=== PATIENT | female | born 1995 | race Caucasian/White ===

== ENCOUNTER 2018-03-12 15:05 | Emergency (ER) | payer MEDICAID ==
--- NOTE | 2018-03-12 15:09 | OBHP ---
Datetime: 03/12/2018 15:06 IP Adm Impression: Term, intrauterine Admit Comment, IP Provider: @ 41 wks GA reports decreamsed movments since this megan lucero otiliomariana nay ctx, lof, vb. [place], was schiledue for IOL yesterday but didn' t go beucase she was scared. 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 PMH: Denies PSH: Denies FHX: non contribuotyr MEDS: none NKDA SHX ;negative etoh/tobacc/durugs A/P @ 41 wks GA with decreased movmeents -nst -bpp dilshad to cand efm Pelvic Type - PN: Adequate Extremities - PN: Normal Abdomen - PN: Normal Back - PN: Normal Breast - PN: Not Done Lungs - PN: Normal Heart - PN: Normal Thyroid - PN: Not Done Neurologic - PN: Normal HEENT - PN: Normal General - PN: Normal Membranes, Provider: Intact Contraction Comments Provider: irregular EGA AdmitDate IP: 41.1 Vital Signs Provider: Reviewed IP Chief Complaint: Decreased movement NICHD Decel Fetus A IP Provider: None Dilatation, Provider: 0 Effacement, Provider: 0 Station, Provider: -3 Genitourinary Exam: Normal DTRs - PN: Normal
[2018-03-12] MEDS ORDERED: Lactated Ringer's 1,000 ML IV ONE (17:06)
--- NOTE | 2018-03-12 17:11 | OBADHP ---
Datetime: 03/12/2018 15:06 Admit Comment, IP Provider: @ 41 wks GA reports decreamsed movments since this megan lucero nay ctx, lof, vb. Pt adrienne receives pnc in [place], was schiledue for IOL yesterday but didn' t go beucase she was scared. 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 PMH: Denies PSH: Denies FHX: non contribuotyr MEDS: none NKDA SHX ;negative etoh/tobacc/durugs A/P @ 41 wks GA with decreased movmeents -nst -bpp dilshad to cand efm update with with elevated bp 140/82, 2 eelvatd bp_ denies any headaches, blurry visoin, ruq/epigastir pain s/p US, reprt pending Cat II 130/min variablity admit npo, ivf admissin, preeclamptic labs cont toco adn efm oxygen Pelvic Type - PN: Adequate Extremities - PN: Normal Abdomen - PN: Normal Back - PN: Normal Breast - PN: Not Done Lungs - PN: Normal Heart - PN: Normal Thyroid - PN: Not Done Neurologic - PN: Normal HEENT - PN: Normal General - PN: Normal Membranes, Provider: Intact Contraction Comments Provider: irregular Vital Signs Provider: Reviewed IP Chief Complaint: Decreased movement NICHD Decel Fetus A IP Provider: None Dilatation, Provider: 0 Effacement, Provider: 0 Station, Provider: -3 Genitourinary Exam: Normal DTRs - PN: Normal EGA AdmitDate IP: 41.1 IP Adm Impression: Term, intrauterine IP Admit Plan: Admit to unit
--- NOTE | 2018-03-12 17:20 | US ---
PROCEDURE: Biophysical profile HISTORY: 41 wks BPP COMPARISON: None available. TECHNIQUE: Standard protocol for this study/examination. FINDINGS: FINDINGS: Biophysical profile score 8/8 Based on the followin. breathing movements: 2/2 2. Gross body movement: 2/2 3. tone: 2/2 4. Qualitative amniotic fluid index: 2/2 Cephalic presentation. Anterior Placenta. No evidence of abruption or previa Gestational age derived from LMP 39 weeks 6 days. ANDRES 03/13/2018. Gestational age derived from the following biometric parameters 38 weeks 5 days. ANDRES 03/21/2018 Biparietal diameter 9.47 cm Head circumference 33.88 cm Abdominal circumference 34.09 cm Femur length 7.73 cm Estimated weight 3519 g Calculated cardiac rate 136 beats per min. Closed cervix measuring 2.65 cm IMPRESSION: Biophysical profile score 8/8. Term intrauterine gestation in cephalic presentation.
[2018-03-12 17:57] LABS: BASO % 0.3 % (0.0-2.0); EOS # 0.1 K/uL (0.0-0.7); EOS % 0.7 % (0.0-4.0); HEMOGLOBIN 11.1 g/dL (11.0-16.0); LYMPH # 2.3 K/uL (1.0-4.3); LYMPH % 23.3 % (20.0-40.0); MEAN CELL VOLUME 77.9 fL (81.0-99.0); MEAN CORPUSCULAR HEMOGLOBIN 25.8 pg (27.0-31.0); MEAN CORPUSCULAR HGB CONC 33.2 g/dL (33.0-37.0); MEAN PLATELET VOLUME 9.7 fL (7.2-11.7); MONO % 10.3 % (0.0-10.0); NEUT # 6.4 K/uL (1.8-7.0); NEUT % 65.4 % (50.0-75.0); NRBC % 0.2 % (0.0-2.0); RBC 4.29 Mil/uL (3.80-5.20); WHITE BLOOD COUNT 9.8 K/uL (4.8-10.8)
[2018-03-12 18:00] LABS: SQUAMOUS EPITHIAL 6 /hpf (0-5); URINE BACTERIA MANY (<OCC); URINE BILIRUBIN NEGATIVE (NEGATIVE); URINE BLOOD NEGATIVE (NEGATIVE); URINE CLARITY Clear (Clear); URINE COLOR Yellow (YELLOW); URINE GLUCOSE (UA) 1+ mg/dL (Normal); URINE LEUKOCYTE ESTERASE NEG Leu/uL (Negative); URINE PROTEIN NEGATIVE (NEGATIVE); URINE UROBILINOGEN NORMAL mg/dL (0.2-1.0)
[2018-03-12 18:01] LABS: INR 1.1; PROTHROMBIN TIME 12.5 SECONDS (9.7-12.2)
[2018-03-12 18:06] LABS: ALBUMIN 3.2 g/dL (3.5-5.0); ALT/SGPT 14 U/L (9-52); AST/SGOT 29 U/L (14-36); BLOOD UREA NITROGEN 5 mg/dL (7-17); CALCIUM 9.1 mg/dl (8.6-10.4); GFR AFRICAN-AMERICAN > 60; GFR NON-AFRICAN AMERICAN > 60; URIC ACID 5.7 mg/dL (2.2-7.5)
[2018-03-13 15:49] VITALS: PULSE 87
== END 2018-03-12 19:17 | disposition home or self-care (01) ==
LOC: C.EROB 15:05
DX: O36.8130 Decreased fetal movements, third trimester, not applicable or unspecified (principal); Z3A.41 41 weeks gestation of pregnancy
CPT/HCPCS: 76818; 80053; 81001; 83615; 84550; 85025; 85610; 99283; J7120